=== PATIENT | female | born 1935 | race Caucasian/White ===

== ENCOUNTER 2021-07-04 07:37 | Outpatient (CLI) | payer MEDICARE | END 2021-07-04 07:38 | disposition home or self-care (01) | LOC: PET 07:37 | DX: C55 Malignant neoplasm of uterus, part unspecified (principal); N95.0 Postmenopausal bleeding; N85.3 Subinvolution of uterus; R91.1 Solitary pulmonary nodule; M81.0 Age-related osteoporosis without current pathological fracture; E78.5 Hyperlipidemia, unspecified; R32 Unspecified urinary incontinence; I10 Essential (primary) hypertension; Z85.3 Personal history of malignant neoplasm of breast | CPT/HCPCS: 78815; A9552 ==